=== PATIENT | female | born 1995 | race Caucasian/White ===

== ENCOUNTER → 2019-10-07 | Outpatient (CLI) | payer BC | LOC: RAD 07:38 | DX: R51 Headache (principal) | CPT/HCPCS: A9585 ==

== ENCOUNTER → 2021-08-17 | Outpatient (CLI) | payer BC | LOC: RAD 15:38 | DX: G50.8 Other disorders of trigeminal nerve (principal); G43.719 Chronic migraine without aura, intractable, without status migrainosus | CPT/HCPCS: A9585 ==

== ENCOUNTER → 2022-06-15 | Outpatient (CLI) | payer SELFPAY ==
[2022-06-15 10:33] LABS: POTASSIUM 4.2 mmol/L (3.5-5.1)
[2022-06-15 10:34] LABS: ALBUMIN 4.1 g/dL (3.5-5.0)
[2022-06-15 10:35] LABS: CALCIUM 8.9 mg/dL (8.3-10.5)
[2022-06-15 10:36] LABS: TOTAL PROTEIN 6.2 g/dL (6.4-8.3)
[2022-06-15 10:38] LABS: TOTAL BILIRUBIN 0.5 mg/dL (0.2-1.2)
[2022-06-15 10:50] LABS: BASO # 0.04 K/mm3 (0.02-0.10); EOS # 0.27 K/mm3 (0.04-0.40); EOS % 4.8 % (1.0-5.0); HEMATOCRIT 40.7 % (37.0-47.0); HEMOGLOBIN 13.3 g/dL (12.5-16.0); LYMPH# 2.17 K/mm3 (1.50-4.00); MEAN CELL VOLUME 95 fl (78-100); MEAN CORPUSCULAR HEMOGLOBIN 31 pg (27-31); MEAN CORPUSCULAR HGB CONC 33 g/dL (33-37); MEAN PLATELET VOLUME 10.4 fl (7.4-10.4); MONO # 0.41 K/mm3 (0.20-0.80); NEU # 2.74 K/mm3 (1.40-6.50); PLATELET COUNT 193 K/mm3 (130-400); RED CELL DISTRIBUTION WIDTH 12.3 % (11.5-14.5); WHITE BLOOD COUNT 5.6 K/mm3 (4.8-10.8)
== END ==
LOC: LAB 09:58
PROVIDERS: Physician Assistant
DX: Z51.81 Encounter for therapeutic drug level monitoring (principal); Z00.00 Encounter for general adult medical examination without abnormal findings; Z13.220 Encounter for screening for lipoid disorders; N91.2 Amenorrhea, unspecified; G43.909 Migraine, unspecified, not intractable, without status migrainosus; H54.40 Blindness, one eye, unspecified eye; H53.9 Unspecified visual disturbance